=== PATIENT | male | born 1985 | race Asian ===

== ENCOUNTER 2017-01-29 15:58 | Inpatient (IN) | payer OTHER ==
[~2017-01-29] VITALS: Ht 182.9 cm; Wt 98.9 kg
[2017-01-29 17:38] LABS: BASOPHIL % 0.2 % (0-2); PLATELET COUNT 320 x10^3mcL (130-400); RED CELL DISTRIBUTION WIDTH 12.9 % (11.5-14.5)
[2017-01-29 17:56] LABS: UA SPECIFIC GRAVITY 1.015 (1.005-1.035); microscopic required? YES; urine erythrocyte TRACE (NEGATIVE)
[2017-01-29 18:05] LABS: CALCIUM 8.9 mg/dL (8.5-10.1); CHLORIDE SERUM 106 mmol/L (98-107); CREATININE SERUM 0.8 mg/dL (0.7-1.3); GFR1 > 60 mL/min; GLUCOSE SERUM 94 mg/dL (74-106); POTASSIUM SERUM 3.7 mmol/L (3.5-5.1); SODIUM SERUM 141 mmol/L (136-145)
[2017-01-29 18:08] LABS: CK-MB 0.5 ng/mL (0-3.6)
[2017-01-29 18:12] LABS: ALKALINE PHOSPHATASE 32 U/L (46-116); ALT/SGPT 29 U/L (16-63); AST/SGOT 14 U/L (15-37); BILIRUBIN TOTAL 0.92 mg/dL (0.20-1.00); C REACTIVE PROTEIN 3.2 mg/dL (<=0.9); TOTAL PROTEIN, SERUM 7.7 g/dL (6.4-8.2)
[2017-01-29 19:18] LABS: ERYTHROCYTE SED RATE 10 mm/hr (0-15)
[2017-01-29 20:42] VITALS: BP 134/88
[2017-01-29 20:46] VITALS: Ht 182.9 cm; Wt 98.9 kg
[2017-01-29 21:16] LABS: CHOLESTEROL/HDL RATIO 3.7
[2017-01-29 21:20] LABS: T3 TOTAL 0.97 ng/mL
[2017-01-29 21:23] LABS: FREE T4 0.88 ng/dL (0.76-1.46); FREE THYROXINE INDEX 2.9 ug/dL (1.4-4.5); T4(THYROXINE) 8.6 ug/dL (4.7-13.3)
[2017-01-29 22:58] LABS: AMPHETAMINE QUAL UR NONE DETECTED (NEG <=1000)
[2017-01-30 06:16] LABS: BASOPHIL % 0.4 % (0-2); PLATELET COUNT 289 x10^3mcL (130-400); RED CELL DISTRIBUTION WIDTH 12.9 % (11.5-14.5)
[2017-01-30 06:39] LABS: CALCIUM 8.3 mg/dL (8.5-10.1); CARBON DIOXIDE 25.9 mmol/L (21-32); CHLORIDE SERUM 107 mmol/L (98-107); GFR1 > 60 mL/min; GLUCOSE SERUM 114 mg/dL (74-106); MAGNESIUM 1.9 mg/dL (1.8-2.4); SODIUM SERUM 142 mmol/L (136-145)
[2017-01-30 12:00] VITALS: BP 139/89
[2017-01-30 18:13] VITALS: BP 116/68
[2017-01-31 05:31] VITALS: BP 104/63
[2017-01-31 06:15] LABS: BASOPHIL % 0.5 % (0-2); PLATELET COUNT 313 x10^3mcL (130-400); RED CELL DISTRIBUTION WIDTH 12.6 % (11.5-14.5)
[2017-01-31 06:41] LABS: CARBON DIOXIDE 26.2 mmol/L (21-32); CHLORIDE SERUM 104 mmol/L (98-107); CREATININE SERUM 0.8 mg/dL (0.7-1.3); GFR1 > 60 mL/min; GLUCOSE SERUM 117 mg/dL (74-106); MAGNESIUM 1.9 mg/dL (1.8-2.4); PHOSPHOROUS 4.8 mg/dL (2.5-4.9); SODIUM SERUM 139 mmol/L (136-145)
[2017-01-31 10:07] VITALS: BP 128/80
[2017-01-31] MEDS ORDERED: KEFLEX500 M1 PO (11:27)
[2017-01-31] MEDS ORDERED: FLA500 PO (11:28)
[2017-01-31] MEDS ORDERED: ZOF4 PO (11:28)
[2017-01-31] MEDS ORDERED: LAC PO (11:28)
[2017-01-31] MEDS ORDERED: NORCO1 TA2 PO (11:29)
[2017-01-31] MEDS ORDERED: COLACE100 MG PO (11:30)
[2017-01-31 11:37] VITALS: BP 128/80
== END 2017-01-31 13:00 | disposition home or self-care (01) | DRG 225 ==
LOC: ED 15:58 → DU 19:37 → MU 01-30 17:40
PROVIDERS: Specialist; Surgery; ADMIT Family Medicine
PROC: 0DTJ4ZZ Resection of Appendix, Percutaneous Endoscopic Approach (ICD-10-PCS; principal; 2017-01-30 09:00)
DX: K35.80 Unspecified acute appendicitis (principal); E78.1 Pure hyperglyceridemia; Z53.29 Procedure and treatment not carried out because of patient's decision for other reasons
CPT/HCPCS: 83880; 84439; 94150; J0330; J0694; J1170; J1885; J2270; J2405; J2704; J2710; J3010; J3490; J7030; J7120